=== PATIENT | male | born 1970 | race Caucasian/White ===

== ENCOUNTER 2018-10-12 06:47 | Emergency (ER) | payer OTHER ==
[~2018-10-12] VITALS: Ht 180.3 cm; Wt 101.0 kg
[2018-10-12] MEDS ORDERED: CVS1TAB55 PO (06:57)
[2018-10-12] MEDS ORDERED: NITROGLYCERIN 0.4 MG SUBL TABLET As Ordered ONE (07:10)
[2018-10-12] MEDS ORDERED: NS 1,000 ML IV SCH (07:11)
[2018-10-12] MEDS ORDERED: HEPARIN DRIP 25,000 UNITS in APPROPRIATE DILUENT 1 EA IV SCH (07:11)
[2018-10-12 07:15] LABS: BASO % 0.3 % (0.0-1.0); EOS # 0.1 10^3/uL (0.0-0.50); EOS % 1.3 % (0.0-3.0); HEMATOCRIT 49.7 % (42.0-52.0); HEMOGLOBIN 16.9 g/dl (13.5-17.5); LYMPH # 2.1 10^3/uL (1.5-4.5); LYMPH % 26.4 % (24.0-44.0); MEAN CORPUSCULAR HEMOGLOBIN 30.6 pg (27.0-33.0); MEAN CORPUSCULAR VOLUME 89.9 fl (80.0-96.0); MONO # 0.6 10^3/uL (0.0-0.8); MONO % 8.1 % (0.0-5.0); NEUTROPHILS # 5.1 10^3/uL (1.8-7.7); NEUTROPHILS % 63.5 % (36.0-66.0); PLATELET COUNT, AUTOMATED 214 10^3/uL (150-450); RED BLOOD COUNT 5.53 10^6/uL (4.30-6.10)
[2018-10-12] MEDS ORDERED: NITROGLYCERIN 0.4 MG SUBL TABLET SL PRN (07:15)
[2018-10-12] MEDS ORDERED: CLOPIDOGREL 300 MG TAB (PLAVIX) PO ONE (07:15)
[2018-10-12] MEDS ORDERED: ASPIRIN 81 MG CHEW TABLET PO ONE (07:15)
[2018-10-12] MEDS ORDERED: HEPARIN SOD (PORCINE) 5000 UNITS/ML VIAL IV ONE (07:15)
[2018-10-12] MEDS ORDERED: ONDANSETRON 4MG/2ML VIAL (J2405) IV ONE (07:15)
[2018-10-12 07:25] VITALS: BP 127/63
[2018-10-12] MEDS ORDERED: NITROGLYCERIN IN D5W 25MG/250ML (100MCG/ML) As Ordered ONE (07:29)
[2018-10-12] MEDS ORDERED: NS 250 ML IV ONE (07:30)
[2018-10-12] MEDS ORDERED: NITROGLYCERIN/D5W 100MCG/ML 25 MG in APPROPRIATE DILUENT 1 EA IV SCH (07:30)
[2018-10-12 07:33] VITALS: BP 97/64
--- NOTE | 2018-10-12 07:37 | REP ---
Portable chest, 07:17 a.m., single AP view, the patient semi upright: There are no comparisons. The left costophrenic angle is obscured by the superimposed rib. The lung valentino otherwise clear. Cardiac size is normal. The villa, mediastinum, and skeletal structures are unremarkable. Impression: There are no acute cardiopulmonary findings. Electronically Signed by All Lewis MD 10/12/2018 07:28 A
[2018-10-12 07:41] LABS: INR 0.95; PROTHROMBIN TIME 12.8 SECONDS (12.1-14.4)
[2018-10-12 07:42] LABS: PARTIAL THROMBOPLASTIN TIME 29.6 SECONDS (25.4-37.6)
[2018-10-12 07:50] LABS: ALBUMIN 4.3 GM/DL (3.2-5.2); ALT/SGPT 40 U/L (12-78); BILIRUBIN,DIRECT 0.1 MG/DL (0.0-0.2); BILIRUBIN,TOTAL 0.5 MG/DL (0.2-1.0); BLOOD UREA NITROGEN 22 MG/DL (7-18); CALCIUM LEVEL 9.4 MG/DL (8.5-10.1); CARBON DIOXIDE LEVEL 28 MEQ/L (21-32); CHLORIDE LEVEL 108 MEQ/L (98-107); CPK CREATINE PHOSPHOKINASE 222 U/L (39-308); CREATININE FOR GFR 1.17 MG/DL (0.70-1.30); FREE T4 1.02 NG/DL (0.76-1.46); GLOMERULAR FILTRATION RATE > 60.0 (>56); GLUCOSE, FASTING 92 MG/DL (70-100); LIPASE 261 U/L (73-393); MB/CK RELATIVE INDEX 2.25 (< OR =4); NT-PRO BNP 791 PG/ML (<125); SODIUM LEVEL 142 MEQ/L (136-145); TOTAL PROTEIN 7.6 GM/DL (6.4-8.2); TROPONIN I 0.28 NG/ML (< 0.10)
--- NOTE | 2018-10-14 20:28 | ECGEPIP ---
Stationary ECG Study [facility] - ED Test Date: 2018-10-12 Pat Name: PIA SILVA Department: Room: - Gender: M Evs Manager: TC : 1970 Requested By: LEONCIO JIMÉNEZ Order Number: [id number] Reading MD: Fren Marie Measurements Intervals [place] Rate: 86 P: 57 [place]: 119 QRS: -8 QRSD: 97 T: 75 QT: 337 QTc: 404 Interpretive Statements SINUS RHYTHM WITH SHORT IL INTERVAL SEPTAL MYOCARDIAL INFARCTION, OF INDETERMINATE AGE, CLINICAL CORRELATION NEEDED TO RULE OUT ACUTE ISCHEMIA NO PRIOR FOR COMPARISON Electronically Signed On 10-14-2018 20:28:07 EDT by Fern Marie
== END 2018-10-12 07:51 | disposition short-term general hospital (02) ==
LOC: M ED 06:47
DX: I21.09 ST elevation (STEMI) myocardial infarction involving other coronary artery of anterior wall (principal); Z88.0 Allergy status to penicillin
CPT/HCPCS: 36415; 71045; 80048; 80076; 82550; 82553; 83690; 83880; 84439; 84443; 84484; 85025; 85610; 85730; 93005; 93041; 94760; 96374; 96375; 99285; J2405

== ENCOUNTER 2019-01-17 11:54 | Outpatient (RCR) | payer OTHER ==
[~2019-01-17 11:54] MED LIST: CVS1TAB55 PO
[2019-01-17] MEDS ORDERED: ASPI81TA85 PO (13:32)
[2019-01-17] MEDS ORDERED: ATOR80TA59 PO (13:32)
[2019-01-17] MEDS ORDERED: LISI-542 PO (13:32)
[2019-01-17] MEDS ORDERED: [UNRECOGNIZED DRUG - OTHER] PO (13:32)
--- NOTE | 2019-01-17 14:30 | CARECAPL ---
Assessment Account #s: Initial Assessment General Diagnoses: Stent, STEMI Date of event: Oct 12, 2018 Physician: Lonnie Marion Allergies: Coded Allergies: Penicillins (Verified Allergy, Intermediate, 10/12/18) Date Entered Program: Jan 17, 2019 Risk strat for cardiac event: Moderate Exercise Date: Jan 17, 2019 Assessment: Initial Assessment Exercise Prescription Plan TO EDUCATE AND BUILD ENDURANCE THROUGH MONITORED EXERCISE Modalities initiated: Treadmill (WILL ADD), Nustep (WILL ADD), Arm Aerometer (WILL ADD), Dumbells (WILL ADD), Recumbent Bike (WILL ADD), Elliptimill (WILL ADD) Frequency: 3 Duration (Minutes) 30-60 minutes total exercise a day. 12-15 work intervals in minutes. 5 MIN NEEDED rest intervals in minutes. Functional Capacity Goal Sustained Metabolic Equivalent of a task (MET) goal of 3.75-4.75 for 15-20 minutes. Intensity: 3-Moderate Progression (METS) Increase by: 0.5 METS every: 5 sessions Angina with ex: No Target Heart Rate 102-136 BASED ON AGE PREDICTED Resistance Training: Yes Weight (pounds): 2 Reps: 12-15 Hypertension controlled with: Medication Resting 130/80 Medications Scheduled Aspirin (Aspir 81), 81 MG PO DAILY, (Reported) Atorvastatin Calcium (Atorvastatin Calcium), 1 TAB PO DAILY, (Reported) Lisinopril (Lisinopril), 1 TAB PO DAILY, (Reported) Multivit,Calc,Mins/Iron/Folic ([facility] Daily Multiple Tablet), 1 TAB PO DAILY, (Reported) [brinlinta], 90 MG PO DAILY, (Reported) Med Change: No Intervention Resistance Training: Yes Education: Self pulse (WILL EDUCATE ON FIRST EXERCISE), Ex safety (WILL DISCUSS WITH 1ST EXERCISE), S/S to report (PATIENT WILL BE EDUCATED TO REPORT CHEST PAIN,SOB), Low NA diet (WILL SEE AWNINGS MECHANIC WHILE IN PROGRAM, CARDIAC HEALTHY DIET REVIEWED WITH STAFF), BP medication, RPE Scale (WILL EDUCATE PATIENT TO RATE EACH PIECE OF EQUIPMENT), Equipment orientation (WILL ORIENT TO EACH PIECE OF EQUIPMENT), warm up/cool down (WILL EDUCATE ON IMPORTANCE OF WARM UP/COOL DOWN, PRIOR TO AND FOLLOWING EXERCISE), Understand BP, Physical Active (WILL DISCUSS IMPORTANCE OF CONTINUED EXERCISE ONCE PROGRAM IS COMPLETED) Target Goals Individual exercise Rx (1) BP 140/90 or 130/80 if DM or CKD (1) Aerobic active 30+min 5 days per week (1) Nutrition Date: Jan 17, 2019 Assessment: Initial Assessment Lipid- med/supplement ATORVASTATIN 80 MG DAILY Med Change: No Diabetes Diabetes: No Monitor Blood Sugar at home: No Medication Change: No Blood sugar in range: No Weight Management Weight (lbs): 215.6 Height (inches): 71 Waist Circumference (Inches): 43.5 BMI: 29.6 Weight goal: 195 Special Diet: low salt, low-fat Vitamin/Supplements: Multivitamin Alcohol: weekly Alcohol Type: beer Alcohol Amount: 2 Diet Access Tool: Rate your plate Score: 57 Current Weight (pounds): 215.6 Weight Goal 195 Intervention Riding Coach Consult: Yes (WILL SEE AWNINGS MECHANIC WHILE IN PROGRAM) Nurse/patient discussion: Yes Dietary Goals TO MAKE HEART HEALTHY CHOICES, LOW SALT, LOW FAT Diet Class: Yes (WHILE IN PROGRAM) Referral to Diabetes education: No Referral to lipid clinic: No Referral to weight mangement p: No Education Eating Healthy Target goal LDL-C<100 if triglycerides are >200 Non-HDL-C should be <130 (1) LDL-C<70 for high risk patients (4) HbA1c<7% (1) BMI<25 Waist cir<40in M/<35in F (1) Education Date: Jan 17, 2019 Assessment: Initial Assessment Learning Barriers: ready Knowledge Test Score: 10 Family Support: Yes Tobacco use: No Quit: never smoked Tobacco Use Smokeless tobacco: No Intervention Referral to smoking cessation: No Individual education and couns: No Tobacco Adjunct: No Education class schedule given: No Attended education classes: No Education: CAD, Risk factors, med compliance, cardiac A&P, Angina S/S, Sexuality Target Goals Complete cessation of tobacco use (1). Psychosocial Date: Jan 17, 2019 Assessment: Initial Assessment Psych Test (Initial/Discharge) Tool Used: CESD Score: 1 Intervention Physician Consult: No Physician Referral: No Med Change: No Stress Management Class: No Uses Stress Management Skills: No Education Education: Coping Techniques, S/S depression, Relaxation Techniques Target Goal Assess presence or absence of depression using a valid screening tool (1). Maximize coping skills (2). Positive support system (2). Patient/Program Goal Preventative Medication: Yes Aspirin, Yes GILBERTO Inhibitor, Yes Statin/OTR lipid Lowering Fall Risk Assess: Yes (NOT A FALL RISK) Provider Assessment Session Number: 1 Provider Assessment: Proceed with rehab Rayo Sánchez RN Jan 17, 2019 14:30
== END 2019-01-23 ==
LOC: M CR 11:54
PROVIDERS: ATTEND Internal Medicine Cardiovascular Disease
DX: Z98.61 Coronary angioplasty status (principal)

== ENCOUNTER 2019-01-28 11:58 | Outpatient (RCR) | payer OTHER ==
[~2019-01-28 11:58] MED LIST changes: +ASPI81TA85 PO; +ATOR80TA59 PO; +LISI-542 PO; +[UNRECOGNIZED DRUG - OTHER] PO
--- NOTE | 2019-02-07 14:02 | CARECAPL ---
Assessment Account #s: Re-Assessment II (DISCHARGE ASSESSMENT) General Diagnoses: Stent, STEMI Date of event: Oct 12, 2018 Physician: Lonnie Marion Allergies: Coded Allergies: Penicillins (Verified Allergy, Intermediate, 10/12/18) Date Entered Program: Jan 17, 2019 Risk strat for cardiac event: Moderate Exercise Date: Feb 07, 2019 Assessment: Followup/Discharge Exercise Prescription Plan TO EDUCATE AND BUILD ENDURANCE THROUGH MONITORED EXERCISE Modalities initiated: Treadmill (METS=2.61/RPE=2), Nustep (METS=5.61/RPE=2), Arm Aerometer (METS=2.6/RPE=2), Dumbells (RPE=2), Recumbent Bike (METS=2.6/RPE=2) Frequency: 3 Duration (Minutes) 30-60 minutes total exercise a day. 12-15 work intervals in minutes. 5 MIN PRN rest intervals in minutes. Functional Capacity Goal Sustained Metabolic Equivalent of a task (MET) goal of 3.75-4.75 for 15-20 minutes. Intensity: 3-Moderate Progression (METS) Increase by: METS every: sessions Angina with ex: No Target Heart Rate 102-136 BASED ON AGE PREDICTED Resistance Training: Yes Weight (pounds): 2 Reps: 12-15 Hypertension: Yes Hypertension controlled with: Medication Resting 102/80 Medications Scheduled Aspirin (Aspir 81), 81 MG PO DAILY, (Reported) Atorvastatin Calcium (Atorvastatin Calcium), 1 TAB PO DAILY, (Reported) Lisinopril (Lisinopril), 1 TAB PO DAILY, (Reported) Multivit,Calc,Mins/Iron/Folic ([facility] Daily Multiple Tablet), 1 TAB PO DAILY, (Reported) [brinlinta], 90 MG PO DAILY, (Reported) Current BP 102/72 Med Change: No Education Goals Met: No (ONLY ATTENDED ONE TIME) Target Goals Individual exercise Rx (1) BP 140/90 or 130/80 if DM or CKD (1) Aerobic active 30+min 5 days per week (1) Nutrition Date: Feb 07, 2019 Assessment: Followup/Discharge Lipid- med/supplement ATORVASTATIN 80 MG DAILY Med Change: No Diabetes Diabetes: No Monitor Blood Sugar at home: No Medication Change: No Blood sugar in range: No Weight Management Weight (lbs): 215.6 Special Diet: low salt, low-fat Vitamin/Supplements: Multivitamin Current Weight (pounds): 215.6 Intervention Parts Runner Consult: No Nurse/patient discussion: Yes Diet Class: No (DID NOT ATTEND) Referral to Diabetes education: No Referral to lipid clinic: No Referral to weight mangement p: No Education Eating Healthy Education Goals Met: No (POOR ATTENDENCE/ATTENDED ONLY ONCE) Target goal LDL-C<100 if triglycerides are >200 Non-HDL-C should be <130 (1) LDL-C<70 for high risk patients (4) HbA1c<7% (1) BMI<25 Waist cir<40in M/<35in F (1) Education Date: Feb 07, 2019 Assessment: Followup/Discharge Family Support: Yes Tobacco use: No Tobacco Use Smokeless tobacco: No Intervention Referral to smoking cessation: No Individual education and couns: No Tobacco Adjunct: No Education class schedule given: No Attended education classes: No Education Goals Met: No (POOR ATTENDENCE/ONLY ATTENDED ONCE) Target Goals Complete cessation of tobacco use (1). Psychosocial Date: Feb 07, 2019 Assessment: Followup/Discharge Intervention Physician Consult: No Physician Referral: No Med Change: No Stress Management Class: No Uses Stress Management Skills: Yes Education Education: Coping Techniques, S/S depression, Relaxation Techniques Education Goals Met: No Target Goal Assess presence or absence of depression using a valid screening tool (1). Maximize coping skills (2). Positive support system (2). Patient/Program Goal Preventative Medication: Yes Aspirin, Yes GILBERTO Inhibitor, Yes Statin/OTR lipid Lowering Fall Risk Assess: Yes (NOT A FALL RISK) Provider Assessment Session Number: 1 Rayo Sánchez RN Feb 07, 2019 14:02
== END 2019-02-23 ==
LOC: M CR 11:58
PROVIDERS: ATTEND Internal Medicine Cardiovascular Disease
DX: Z98.61 Coronary angioplasty status (principal)

== ENCOUNTER → 2021-02-24 | Outpatient (REF) | payer OTHER ==
[~2021-02-24] MED LIST changes: -ASPI81TA85 PO; +ASPI81TA86 PO; -CVS1TAB55 PO; +CVSTAB PO; -LISI-542 PO; +LISI-898 PO
[2021-02-27 15:11] LABS: Lyme Disease IgG Ab 18 kDa Ban Absent (.); Lyme Disease IgG Ab 23 kDa Ban Absent (.); Lyme Disease IgG Ab 28 kDa Ban Absent (.); Lyme Disease IgG Ab 30 kDa Ban Absent (.); Lyme Disease IgG Ab 39 kDa Ban Absent (.); Lyme Disease IgG Ab 41 kDa Ban Present (.); Lyme Disease IgG Ab 45 kDa Ban Absent (.); Lyme Disease IgG Ab 58 kDa Ban Absent (.); Lyme Disease IgG Ab 66 kDa Ban Absent (.); Lyme Disease IgG Ab 93 kDa Ban Absent (.); Lyme Disease IgG West Blot Int Negative (.); Lyme Disease IgG/IgM Antibodie 1.08 ISR (0.00-0.90); Lyme Disease IgM Ab 23 kDa Ban Present (.); Lyme Disease IgM Ab 39 kDa Ban Absent (.); Lyme Disease IgM Ab 41 kDa Ban Absent (.); Lyme Disease IgM Ab Quantitati 2.47 index (0.00-0.79); Lyme Disease IgM West Blot Int Negative (.)
== END ==
LOC: M LAB REF 16:00
PROVIDERS: ATTEND Internal Medicine
DX: Z11.9 Encounter for screening for infectious and parasitic diseases, unspecified (principal); W57.XXXD Bitten or stung by nonvenomous insect and other nonvenomous arthropods, subsequent encounter; Y92.9 Unspecified place or not applicable; Y93.9 Activity, unspecified; Y99.9 Unspecified external cause status